=== PATIENT | male | born 2000 | race Caucasian/White ===

== ENCOUNTER 2022-12-24 07:30 | Inpatient (IN) | payer OTHER ==
[~2022-12-24] VITALS: Ht 180.3 cm; Wt 71.6 kg
[~2022-12-24 07:30] MED LIST: NARCAN4 M1
[2022-12-24 08:45] LABS: BASOPHILS ABSOLUTE AUTO 0.02 K/mm3 (0.00-0.23); BASOPHILS PERCENT AUTO 0 % (0-2); EOSINOPHILS PERCENT AUTO 0 % (0-6); Hematocrit 41.9 % (37.0-53.0); Hemoglobin 14.5 g/dL (13.5-17.5); IMMATURE GRAN ABSOLUTE AUTO 0.03 K/mm3 (0.00-0.10); IMMATURE GRAN PERCENT AUTO 0 % (0-1); LYMPHOCYTES ABSOLUTE AUTO 1.02 K/mm3 (0.84-5.20); LYMPHOCYTES PERCENT AUTO 11 % (21-46); MONOCYTES ABSOLUTE AUTO 0.76 K/mm3 (0.16-1.47); MONOCYTES PERCENT AUTO 8 % (4-13); Mean Corpuscular HGB 33.3 pg (26.0-34.0); Mean Corpuscular HGB Conc 34.6 g/dL (31.5-36.5); Mean Corpuscular Volume 96 fL (80-100); Mean Platelet Volume 9.4 fL (9.1-12.4); NEUTROPHILS ABSOLUTE AUTO 7.39 K/mm3 (1.96-9.15); NEUTROPHILS PERCENT AUTO 80 % (41-73); Platelet Count 267 K/mm3 (150-400); RDW Coefficient Variation 11.3 % (11.7-14.2); RDW Standard Deviation 40.4 fL (35.1-46.3); Red Blood Cell Count 4.36 M/mm3 (4.30-5.90); White Blood Cell Count 9.22 K/mm3 (4.00-11.30)
[2022-12-24 09:09] LABS: Albumin, Blood 3.8 g/dL (3.4-5.0); Albumin/Globulin Ratio 1.1 (0.8-1.8); Bilirubin, Total 0.1 mg/dL (0.1-1.0); Bun/Creatinine Ratio 11.8 (12.0-20.0); Calcium, Blood 8.1 mg/dL (8.5-10.1); Creatinine, Blood 0.77 mg/dL (0.60-1.20); Globulin, Blood 3.6 g/dL (2.2-4.0); Potassium, Blood 4.1 mmol/L (3.5-5.5); Total Protein, Blood 7.4 g/dL (6.4-8.2)
[2022-12-24 14:24] LABS: Hematocrit 41.4 % (37.0-53.0); Hemoglobin 14.2 g/dL (13.5-17.5)
--- NOTE | 2022-12-24 17:01 | NUR ---
LATE ENTRY/ER ADMIT 1535:RECEIVED REPORT FROM ALFREDO RN 1557: RECEIVED PT FROM ER VIA RASHEEDA. PT PLACED SELF IN BED, MADE COMFORTABLE & ORIENTED TO ROOM & UNIT ROUTINE. MOM AT BEDSIDE. PIV IN R AC. INTACT & PATENT WITH SANDOSTATIN INFUSING. PT REFUSES 2ND IV FOR PROTONIX GTT. MD NOTIFIED AND ORDER RECEIVED FOR ORAL PROTONIX. MD IN TO SEE PT AND ORDERS RECEIVED FOR CLR LIQ DIET THEN NPO AFTER MN. ORDERS ALSO RECEIVED FOR ANXIETY. PT A&O X 4. VSS. IS PLEASANT
[2022-12-24 21:15] LABS: Hematocrit 37.7 % (37.0-53.0); Hemoglobin 13.4 g/dL (13.5-17.5)
--- NOTE | 2022-12-25 04:50 | NUR ---
SHIFT SUMMARY NOC PT A/O X 4. NO N/V DURING SHIFT. PT HAS BEEN NPO OF 12/25/22 @ 0000 FOR POSSIBLE EGD @ [facility].PT SHOWED NO S/SX OF WITHDRAWAL AND NO CIWA WERE REQUIRED. PT HAD ONE EPISODE OF MILD ANXIETY DUE TO HOSPITALIZATION AND ATIVAN WAS GIVEN. PT WAS PLEASANT AND COOPERATIVE WITH CARE. PT HAS SANDOSTATIN INFUSING CONTINUOSLY @ 25 MLS/HR. PT IS AWAITING COBRA TRANSFER POSSIBLY 12/25/22 TO HAVE EGD PERFORMED TO INVSESTIGATE GI BLEED. PT MOTHER IS POA FOR HEALTHCARE DECISIONS NUMBER IS ON WHITEBOARD. PT IS CURRENTLY RESTING WITH BED IN LOWEST POSITION AND CALL LIGHT WITHIN REACH.[facility].
[2022-12-25 05:28] LABS: BASOPHILS ABSOLUTE AUTO 0.05 K/mm3 (0.00-0.23); BASOPHILS PERCENT AUTO 1 % (0-2); EOSINOPHILS PERCENT AUTO 2 % (0-6); Hematocrit 39.6 % (37.0-53.0); Hemoglobin 13.8 g/dL (13.5-17.5); IMMATURE GRAN ABSOLUTE AUTO 0.02 K/mm3 (0.00-0.10); IMMATURE GRAN PERCENT AUTO 0 % (0-1); LYMPHOCYTES ABSOLUTE AUTO 1.88 K/mm3 (0.84-5.20); LYMPHOCYTES PERCENT AUTO 27 % (21-46); MONOCYTES ABSOLUTE AUTO 0.57 K/mm3 (0.16-1.47); MONOCYTES PERCENT AUTO 8 % (4-13); Mean Corpuscular HGB 32.8 pg (26.0-34.0); Mean Corpuscular HGB Conc 34.8 g/dL (31.5-36.5); Mean Corpuscular Volume 94 fL (80-100); NEUTROPHILS ABSOLUTE AUTO 4.26 K/mm3 (1.96-9.15); NEUTROPHILS PERCENT AUTO 62 % (41-73); Platelet Count 292 K/mm3 (150-400); RDW Coefficient Variation 11.2 % (11.7-14.2); RDW Standard Deviation 38.4 fL (35.1-46.3); Red Blood Cell Count 4.21 M/mm3 (4.30-5.90); White Blood Cell Count 6.88 K/mm3 (4.00-11.30)
[2022-12-25 05:58] LABS: Bun/Creatinine Ratio 11.1 (12.0-20.0); Calcium, Blood 8.9 mg/dL (8.5-10.1); Creatinine, Blood 0.63 mg/dL (0.60-1.20); Potassium, Blood 3.7 mmol/L (3.5-5.5)
[2022-12-25 10:07] LABS: U Amphetamine Screen Not Detected; U Barbituate Screen Not Detected; U Benzodiazapine Screen DETECTED; U Buprenorphine Screen Not Detected; U Cannabinoids Screen DETECTED; U Cocaine Screen DETECTED; U Methadone Screen Not Detected; U Methamphetamine Screen Not Detected; U Opiates Screen Not Detected; U Oxycodone Screen Not Detected; U Phencyclidine Screen Not Detected; U Propoxyphene Screen Not Detected
--- NOTE | 2022-12-25 17:21 | NUR ---
PT CALM AND APPROPRIATE THIS SHIFT. ONE CIWA INDICATED MEDS FOR A SCORE OF 5. PT REPORTED BEING MODERATELY ANXIOUS WITH A SLIGHT MCF[place]ANE. PT AAOX4. CALLS APPROPRIATELY.
[2022-12-26 05:28] LABS: BASOPHILS ABSOLUTE AUTO 0.04 K/mm3 (0.00-0.23); BASOPHILS PERCENT AUTO 1 % (0-2); EOSINOPHILS ABSOLUTE AUTO 0.16 K/mm3 (0.00-0.68); EOSINOPHILS PERCENT AUTO 3 % (0-6); Hematocrit 36.7 % (37.0-53.0); IMMATURE GRAN PERCENT AUTO 0 % (0-1); LYMPHOCYTES PERCENT AUTO 39 % (21-46); MONOCYTES ABSOLUTE AUTO 0.42 K/mm3 (0.16-1.47); MONOCYTES PERCENT AUTO 9 % (4-13); Mean Corpuscular HGB 32.7 pg (26.0-34.0); Mean Corpuscular HGB Conc 35.4 g/dL (31.5-36.5); Mean Corpuscular Volume 92 fL (80-100); Mean Platelet Volume 9.6 fL (9.1-12.4); NEUTROPHILS ABSOLUTE AUTO 2.31 K/mm3 (1.96-9.15); NEUTROPHILS PERCENT AUTO 48 % (41-73); Platelet Count 295 K/mm3 (150-400); RDW Coefficient Variation 10.9 % (11.7-14.2); RDW Standard Deviation 37.3 fL (35.1-46.3); Red Blood Cell Count 3.97 M/mm3 (4.30-5.90); White Blood Cell Count 4.83 K/mm3 (4.00-11.30)
--- NOTE | 2022-12-26 05:40 | NUR ---
ALERT AND ORIENTED, ROOM AIR, NO TELE, METHADONE GIVEN LAST NIGHT, PATIENT SLEPT THROUGH SHIFT
--- NOTE | 2022-12-26 05:50 | NUR ---
PATIENT ALERT AND ORIENTED, ROOM AIR, NO TELE, INDEPENDENT, SANDRA POWERGLIDE, SANDOSTATIN @ 25CC/HR AND NS @ 100CC/HR, NPO AT MIDNIGHT. PATIENTS MOTHER, GIRLFRIEND, AND GRANDFATHER WERE IN ROOM AT BEGINNING OF SHIFT AND ASKING LOTS OF QUESTIONS ABOUT PATIENTS TENDER FACE AND CONCERNED ABOUT A STROKE. STROKE ASSESSMENT COMPLETED ON PATIENT AND WAS NEGATIVE. PATIENTS RIGHT FACE MILDLY SWOLLEN AND TENDER. PATIENT STATED HE HAS PREVIOUSLY HAD MRSA AND SNORTS COCAINE OUT OF DOLLAR BILLS AND SMOKES CONTROLLED SUBSTANCES. CALLED PHYSICIAN AND ORDERS GIVEN FOR MRSA SWAB, D/C ROCEPHIN, AND NORCO.
--- NOTE | 2022-12-26 10:03 | NUR ---
VERBAL IN PERSON FROM MD DANIELLE TO DC CONTINUOUS FLUIDS.
[2022-12-26] MEDS ORDERED: PANT40 PO (12:49)
[2022-12-26] MEDS ORDERED: Prednisone10 MG PO (13:33)
--- NOTE | 2022-12-26 13:46 | NUR ---
PT BROUGHT DOWN TO ED ENTRANCE TO BE PICKED UP BY A FRIEND. PT STABLE. ALL DC PAPERWORK SIGNED. MEDS FAXED AND CALLED INTO [facility]. ALL QUESTIONS ANSWERED. PT LEFT WITH ALL BELONGINGS.
== END 2022-12-26 13:50 | disposition home or self-care (01) | DRG 379 ==
LOC: ER 07:30 → MEDS 12:25
PROVIDERS: Family Medicine; Student in an Organized Health Care Education/Training Program; ADMIT Family Medicine
DX: K92.2 Gastrointestinal hemorrhage, unspecified (principal); F10.10 Alcohol abuse, uncomplicated; F12.10 Cannabis abuse, uncomplicated; F14.10 Cocaine abuse, uncomplicated; F11.10 Opioid abuse, uncomplicated; G51.0 Bell's palsy; F13.10 Sedative, hypnotic or anxiolytic abuse, uncomplicated; B95.61 Methicillin susceptible Staphylococcus aureus infection as the cause of diseases classified elsewhere; Z79.899 Other long term (current) drug therapy; Z98.890 Other specified postprocedural states; Z71.41 Alcohol abuse counseling and surveillance of alcoholic; Z87.891 Personal history of nicotine dependence; Z71.51 Drug abuse counseling and surveillance of drug abuser
CPT/HCPCS: 36415; 71046; 80048; 80053; 83690; 85014; 85018; 85025; 86850; 86900; 86901; 96365; 96366; 96367; 96368; 96375; 96376; 99285-25; A9270; C1751; C9113; G0378; J0696; J2060; J2354; J2405; J3411; J7030; J7050

== ENCOUNTER 2023-03-19 02:28 | Emergency (ER) | payer OTHER ==
[~2023-03-19] VITALS: Ht 182.9 cm; Wt 72.6 kg
[~2023-03-19 02:28] MED LIST changes: +PANT40 PO; +Prednisone10 MG PO
[2023-03-19 04:30] VITALS: BP 125/85
== END 2023-03-19 04:37 | disposition left against medical advice (07) ==
LOC: ER 02:28
DX: F41.9 Anxiety disorder, unspecified (principal); T40.411A Poisoning by fentanyl or fentanyl analogs, accidental (unintentional), initial encounter; F17.210 Nicotine dependence, cigarettes, uncomplicated; Z79.52 Long term (current) use of systemic steroids; X58.XXXA Exposure to other specified factors, initial encounter
CPT/HCPCS: 99284; A9270